=== PATIENT | male | born 1990 | race Caucasian/White ===

== ENCOUNTER 2018-10-18 09:17 | Emergency (ER) | payer MEDICAID, OTHER ==
[~2018-10-18] VITALS: Ht 182.9 cm; Wt 70.3 kg
[2018-10-18 09:17] VITALS: BP 142/82
--- NOTE | 2018-10-18 10:12 | NUR ---
Patient discharged to home in stable condition. Written and verbal after care instructions given. Patient verbalizes understanding of instruction.
== END 2018-10-18 10:12 | disposition home or self-care (01) ==
LOC: ER 09:21
DX: K62.5 Hemorrhage of anus and rectum (principal)
CPT/HCPCS: 99281; A4606; Z7502